=== PATIENT | male | born 1955 | race African-American/Black ===

== ENCOUNTER 2019-07-30 11:09 | Inpatient (IN) | payer MEDICAID ==
[~2019-07-30] VITALS: Ht 182.9 cm; Wt 73.9 kg
[2019-07-30] MEDS ORDERED: FAMOTIDINE 20MG/2ML VIAL IV STA (11:46)
[2019-07-30] MEDS ORDERED: ONDANSETRON HCL 4MG/2ML INJ IV ONE (12:00)
[2019-07-30 12:10] LABS: BASOPHILS % 0.2 % (0.0-2.0); LYMPHOCYTES % 7.6 % (20.0-50.0); MEAN CORPUSCULAR HEMOGLOBIN 33.1 pg (28.0-32.0); MEAN CORPUSCULAR VOLUME 101.2 fL (80.0-94.0); MEAN PLATELET VOLUME 6.8 fl (7.4-10.4); MONOCYTES % 4.9 % (2.0-8.0); NEUTROPHILS % 87.3 % (40.0-76.0); PLATELET 490 x1000/uL (130-400); RED BLOOD CELL COUNT 1.07 mill/uL (4.7-6.1); RED CELL DISTRIBUTION WIDTH 14.6 % (11.6-14.6)
[2019-07-30 12:12] LABS: HEMATOCRIT. 10.8 % (42.0-52.0); HEMOGLOBIN. 3.5 g/dL (14.0-18.0)
[2019-07-30 12:18] LABS: CHLORIDE 103 mEq/L (98-107)
[2019-07-30 12:22] LABS: ETHANOL BLOOD < 10 mg/dL
[2019-07-30 12:27] LABS: PROTHROMBIN TIME 10.6 sec (9.6-11.0)
[2019-07-30] MEDS ORDERED: PANTOPRAZOLE SODIUM 40 MG/VIAL IV ONE (12:30)
[2019-07-30] MEDS ORDERED: ACETAMINOPHEN 325MG TABLET PO PRN (13:45)
[2019-07-30] MEDS ORDERED: ONDANSETRON HCL 4MG/2ML INJ IV PRN (13:45)
[2019-07-30] MEDS ORDERED: SODIUM CHLORIDE 0.9% 1,000 ML IV ONE (14:00)
[2019-07-30] MEDS ORDERED: DEXTROSE 50% WATER 50ML SYRINGE IV PRN (14:00)
[2019-07-30 14:37] LABS: FOLIC ACID (FOLATE) SERUM 6.7 ng/mL (>5.38)
[2019-07-30] MEDS ORDERED: POTASSIUM CHLORIDE 20MEQ TABLET SR PO NR (15:30)
[2019-07-30] MEDS ORDERED: DIATR MEGLU/DIATRIZOATE SOLN 30ML PO SCH (16:28)
[2019-07-30] MEDS: BLOOD SUGAR DIAGNOSTIC STRIP TEST SCH (17:00)
[2019-07-30] MEDS ORDERED: PIPERACILLIN/TAZOBACTAM 3.375 G in DEXTROSE 5% WATER 50 ML IV SCH (18:00)
[2019-07-30] MEDS: INSULIN LISPRO 100 UNITS/ML SUBCUT SCH (18:20)
[2019-07-30 20:29] LABS: CLARITY URINE CLEAR (CLEAR); COLOR URINE YELLOW (YELLOW); KETONES URINE NEGATIVE (NEGATIVE); LEUKOCYTE ESTERASE URINE NEGATIVE (NEGATIVE); NITRITE URINE NEGATIVE (NEGATIVE); OCCULT BLOOD URINE NEGATIVE (NEGATIVE); PROTEIN URINE NEGATIVE (NEGATIVE); SPECIFIC GRAVITY URINE 1.021 (1.005-1.030); UROBILINOGEN URINE 0.2 E.U./dL (0.2-1.0)
[2019-07-30 21:09] LABS: *AMPHETAMINES SCREEN URINE NEGATIVE (NEGATIVE); *BARBITURATES SCREEN URINE NEGATIVE (NEGATIVE); *BENZODIAZEPINES SCREEN URINE NEGATIVE (NEGATIVE)
[2019-07-30 21:10] LABS: *COCAINE SCREEN URINE NEGATIVE (NEGATIVE); CANNABINOID URINE SCREEN PRESUMTIVE POSITIVE (NEGATIVE); METHADONE URINE SCREEN NEGATIVE (NEGATIVE); OPIATES URINE SCREEN NEGATIVE (NEGATIVE); PHENCYCLIDINE URINE SCREEN NEGATIVE (NEGATIVE)
[2019-07-30] MEDS: PANTOPRAZOLE SODIUM 40 MG/VIAL IV SCH (21:24)
[2019-07-30 23:12] VITALS: BP 142/87
[2019-07-30 23:38] VITALS: BP 142/87
[2019-07-31] VITALS (16 sets, daily range): BP systolic 100–169; BP diastolic 44–95
[2019-07-31] MEDS ORDERED: DIATR MEGLU/DIATRIZOATE SOLN 30ML PO SCH (07:15)
[2019-07-31] MEDS: BLOOD SUGAR DIAGNOSTIC STRIP TEST SCH ×3 (07:30→12:30)
[2019-07-31] MEDS: SODIUM CHLORIDE 0.9% 1,000 ML IV SCH (07:45)
[2019-07-31] MEDS: INSULIN LISPRO 100 UNITS/ML SUBCUT SCH ×2 (08:00→13:00)
[2019-07-31] MEDS: PANTOPRAZOLE SODIUM 40 MG/VIAL IV SCH ×2 (09:32→21:56)
[2019-07-31 09:36] LABS: BASOPHILS % 0.2 % (0.0-2.0); EOSINOPHILS % 0.1 % (0.0-5.0); MEAN CORPUSCULAR HEMOGLOBIN 31.9 pg (28.0-32.0); MEAN CORPUSCULAR VOLUME 93.5 fL (80.0-94.0); MEAN PLATELET VOLUME 7.3 fl (7.4-10.4); MONOCYTES % 8.2 % (2.0-8.0); NEUTROPHILS % 77.5 % (40.0-76.0); PLATELET 389 x1000/uL (130-400); RED BLOOD CELL COUNT 1.59 mill/uL (4.7-6.1); RED CELL DISTRIBUTION WIDTH 15.5 % (11.6-14.6)
[2019-07-31 09:37] LABS: CHLORIDE 110 mEq/L (98-107)
[2019-07-31 10:05] LABS: HEMOGLOBIN. 5.1 g/dL (14.0-18.0)
[2019-07-31 10:06] LABS: HEMATOCRIT. 14.9 % (42.0-52.0)
[2019-07-31] MEDS ORDERED: PNEUMOCOCCAL 23-VAL P-SAC VAC 0.5 ML IM ONE (12:00)
[2019-07-31] MEDS ORDERED: HYDROXYZINE 25MG TABLET PO NR (14:45)
[2019-07-31] MEDS ORDERED: DIPHENHYDRAMINE 50MG CAPSULE PO PRN (14:45)
[2019-07-31 17:20] LABS: HEMOGLOBIN 5.1 g/dL (14.0-18.0)
[2019-07-31 17:21] LABS: HEMATOCRIT 15.1 % (42.0-52.0)
[2019-07-31] MEDS ORDERED: SORBITOL 70% SOLN 30ML PO NR ×2 (19:00→23:00)
[2019-08-01] VITALS (15 sets, daily range): BP systolic 104–162; BP diastolic 55–93
[2019-08-01] MEDS ORDERED: SORBITOL 70% SOLN 30ML PO NR ×2 (05:00→10:30)
[2019-08-01 06:04] LABS: BASOPHILS % 0.2 % (0.0-2.0); EOSINOPHILS % 0.2 % (0.0-5.0); HEMOGLOBIN. 7.1 g/dL (14.0-18.0); LYMPHOCYTES % 19.1 % (20.0-50.0); MEAN CORPUSCULAR HEMOGLOBIN 32.9 pg (28.0-32.0); MEAN CORPUSCULAR VOLUME 93.9 fL (80.0-94.0); MEAN PLATELET VOLUME 7.2 fl (7.4-10.4); NEUTROPHILS % 70.5 % (40.0-76.0); PLATELET 345 x1000/uL (130-400); RED BLOOD CELL COUNT 2.16 mill/uL (4.7-6.1); RED CELL DISTRIBUTION WIDTH 15.6 % (11.6-14.6)
[2019-08-01 06:08] LABS: CHLORIDE 114 mEq/L (98-107)
[2019-08-01 06:12] LABS: PARTIAL THROMBOPLASTIN TIME 23.2 sec (23.4-31.0); PROTHROMBIN TIME 10.3 sec (9.6-11.0)
[2019-08-01 06:28] LABS: HEMATOCRIT. 20.3 % (42.0-52.0)
[2019-08-01] MEDS: SODIUM CHLORIDE 0.9% 1,000 ML IV SCH (06:50)
[2019-08-01] MEDS: PANTOPRAZOLE SODIUM 40 MG/VIAL IV SCH ×2 (10:05→20:44)
[2019-08-01] MEDS: SILVER SULFADIAZINE 1% CREAM 25GM TOP SCH (10:06)
[2019-08-01] MEDS ORDERED: HYDROXYZINE 25MG TABLET PO NR ×3 (11:00→20:00)
[2019-08-01] MEDS ORDERED: NA PHOS,M-B/NA PHOS,DI-BA ENEMA 118ML PR NR (11:00)
[2019-08-01] MEDS ORDERED: SIMETHICONE 40 MG/0.6 ML 30ML ONE (15:58)
[2019-08-01] MEDS ORDERED: FENTANYL CITRATE/PF 50MCG/ML 2ML VIAL ONE (16:11)
[2019-08-01] MEDS ORDERED: MIDAZOLAM HCL 5 MG/5 ML VIAL ONE (16:11)
[2019-08-01] MEDS ORDERED: MIDAZOLAM HCL 2 MG/2 ML VIAL IV PRN (16:15)
[2019-08-01] MEDS ORDERED: FENTANYL CITRATE/PF 50MCG/ML 2ML VIAL IV PRN (16:16)
[2019-08-01] MEDS ORDERED: ATROPINE SULFATE 0.1MG/ML 10ML DISP.SYRIN ONE (16:22)
[2019-08-01 16:49] LABS: BASOPHILS % 0.4 % (0.0-2.0); EOSINOPHILS % 0.2 % (0.0-5.0); HEMATOCRIT. 27.7 % (42.0-52.0); HEMOGLOBIN. 9.5 g/dL (14.0-18.0); LYMPHOCYTES % 13.6 % (20.0-50.0); MEAN CORPUSCULAR VOLUME 96.5 fL (80.0-94.0); MEAN PLATELET VOLUME 7.7 fl (7.4-10.4); MONOCYTES % 9.1 % (2.0-8.0); NEUTROPHILS % 76.7 % (40.0-76.0); PLATELET 387 x1000/uL (130-400); RED BLOOD CELL COUNT 2.87 mill/uL (4.7-6.1); RED CELL DISTRIBUTION WIDTH 15.6 % (11.6-14.6)
[2019-08-01] MEDS ORDERED: HYDRALAZINE 20MG/ML VIAL ONE (16:54)
[2019-08-01] MEDS ORDERED: HYDRALAZINE 20MG/ML VIAL IV ONE (17:00)
[2019-08-01] MEDS ORDERED: HYDRALAZINE 20MG/ML VIAL IV NR (17:30)
[2019-08-02] VITALS (7 sets, daily range): BP systolic 106–153; BP diastolic 56–97
[2019-08-02 08:00] LABS: BASOPHILS % 0.2 % (0.0-2.0); EOSINOPHILS % 0.5 % (0.0-5.0); HEMATOCRIT. 23.6 % (42.0-52.0); HEMOGLOBIN. 8.2 g/dL (14.0-18.0); LYMPHOCYTES % 16.8 % (20.0-50.0); MEAN CORPUSCULAR HEMOGLOBIN 33.2 pg (28.0-32.0); MEAN CORPUSCULAR VOLUME 95.7 fL (80.0-94.0); MEAN PLATELET VOLUME 7.5 fl (7.4-10.4); MONOCYTES % 10.1 % (2.0-8.0); NEUTROPHILS % 72.4 % (40.0-76.0); PLATELET 400 x1000/uL (130-400); RED BLOOD CELL COUNT 2.46 mill/uL (4.7-6.1); RED CELL DISTRIBUTION WIDTH 15.5 % (11.6-14.6)
[2019-08-02 08:08] LABS: CHLORIDE 111 mEq/L (98-107)
[2019-08-02] MEDS: PANTOPRAZOLE SODIUM 40 MG/VIAL IV SCH (08:09)
[2019-08-02] MEDS: SILVER SULFADIAZINE 1% CREAM 25GM TOP SCH (08:10)
[2019-08-02] MEDS ORDERED: SUCR1TAB30 MT (13:48)
[2019-08-02] MEDS ORDERED: PANT40TA4 MT (13:48)
[2019-08-02] MEDS ORDERED: FERR325T6 MT (13:48)
[2019-08-02] MEDS ORDERED: SILV20CR13 TOP (13:55)
[2019-08-02] MEDS ORDERED: CEPH250C2 MT (14:55)
[2019-08-02] MEDS ORDERED: MUPI22OI2 TP (14:55)
== END 2019-08-02 16:10 | disposition home or self-care (01) | DRG 951 ==
LOC: ER 11:09 → 5EST 13:20 → ENRESERV 20:17 → ER 23:10
PROVIDERS: ADMIT Internal Medicine; ATTEND Internal Medicine
PROC: 30233N1 Transfusion of Nonautologous Red Blood Cells into Peripheral Vein, Percutaneous Approach (ICD-10-PCS; 2019-07-31)
PROC: 0DB68ZX Excision of Stomach, Via Natural or Artificial Opening Endoscopic, Diagnostic (ICD-10-PCS; principal; 2019-08-01)
PROC: 0DJD8ZZ Inspection of Lower Intestinal Tract, Via Natural or Artificial Opening Endoscopic (ICD-10-PCS; 2019-08-01)
PROC: 0KB10ZZ Excision of Facial Muscle, Open Approach (ICD-10-PCS; 2019-08-02)
DX: K25.4 Chronic or unspecified gastric ulcer with hemorrhage (principal); E43 Unspecified severe protein-calorie malnutrition; E83.51 Hypocalcemia; L97.519 Non-pressure chronic ulcer of other part of right foot with unspecified severity; L02.01 Cutaneous abscess of face; T25.221A Burn of second degree of right foot, initial encounter; K64.8 Other hemorrhoids; D62 Acute posthemorrhagic anemia; K26.4 Chronic or unspecified duodenal ulcer with hemorrhage; F10.10 Alcohol abuse, uncomplicated; D53.9 Nutritional anemia, unspecified; E87.6 Hypokalemia; D72.829 Elevated white blood cell count, unspecified; K21.9 Gastro-esophageal reflux disease without esophagitis; K29.71 Gastritis, unspecified, with bleeding; F12.10 Cannabis abuse, uncomplicated; K64.4 Residual hemorrhoidal skin tags; R73.9 Hyperglycemia, unspecified; S90.821A Blister (nonthermal), right foot, initial encounter; S90.822A Blister (nonthermal), left foot, initial encounter; L02.02 Furuncle of face; L73.9 Follicular disorder, unspecified; T25.222A Burn of second degree of left foot, initial encounter; X08.8XXA Exposure to other specified smoke, fire and flames, initial encounter; Y93.89 Activity, other specified; Z87.891 Personal history of nicotine dependence; Y92.89 Other specified places as the place of occurrence of the external cause; Y99.8 Other external cause status; Z68.22 Body mass index [BMI] 22.0-22.9, adult
CPT/HCPCS: 36415; 71045; 71260; 73630; 74177; 80048; 80053; 80305; 80320; 81003; 82378; 82607; 82728; 82746; 82962; 83036; 83540; 83550; 83735; 84484; 85014; 85018; 85025; 85044; 86850; 86900; 86920; 88305; 88312; 88313; 93005; 93306; 96374; 97162; 97166; 99152; 99291; C9113; J0360; J0461; J2250; J2405; J3010; J3490; J7030; P9016; Q0163; Q9963; G0480; G0500